=== PATIENT | male | born 1980 | race Caucasian/White ===

== ENCOUNTER 2023-01-21 23:24 | Emergency (ER) | payer SELFPAY ==
[~2023-01-21] VITALS: Ht 170.2 cm; Wt 90.7 kg
[2023-01-21 23:31] VITALS: BP 138/91; PULSE 96; RESP 20; TEMP 97.8; O2SAT 95
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
[2023-01-22] MEDS ORDERED: ACETAMINOPHEN EXTRA STRENGTH 500 MG TAB PO ONE (00:10)
[2023-01-22] MEDS ORDERED: ONDANSETRON 4 MG ODT PO ONE (00:10)
--- NOTE | 2023-01-22 00:15 | NUR ---
DR MCNAMARA AT BEDSIDE
--- NOTE | 2023-01-22 00:49 | NUR ---
XRAY AT BEDSIDE
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
[2023-01-22] MEDS ORDERED: ACET-10509 PO (02:06)
[2023-01-22] MEDS ORDERED: IBUP-2213 PO (02:06)
--- NOTE | 2023-01-22 02:32 | NUR ---
Patient discharged with v/s stable. Written and verbal after care instructions given and explained. Patient verbalized understanding. Ambulatory with steady gait. All questions addressed prior to discharge. Advised to follow up with PMD.
== END 2023-01-22 02:32 | disposition home or self-care (01) ==
LOC: MED 23:24
DX: S16.1XXA Strain of muscle, fascia and tendon at neck level, initial encounter (principal); S83.8X2A Sprain of other specified parts of left knee, initial encounter; S00.83XA Contusion of other part of head, initial encounter; M79.602 Pain in left arm; Y04.8XXA Assault by other bodily force, initial encounter; Y93.89 Activity, other specified; Y92.89 Other specified places as the place of occurrence of the external cause; Y99.8 Other external cause status
CPT/HCPCS: 70450; 72125; 73130; 99284; Q0162